=== PATIENT | male | born 1975 | race Caucasian/White ===

== ENCOUNTER 2017-10-04 13:55 | Emergency (ER) | payer OTHER ==
[2017-10-04] MEDS: LIDOCAINE WITH 8.4% SOD BICARB 3 ML DISP.SYRIN. IJ (14:52)
[2017-10-04] MEDS: DIPHTH,PERTUSS(ACELL),TET TOX 0.5 ML DISP.SYRIN. VAX IM (14:52)
== END 2017-10-04 14:57 | disposition home or self-care (01) ==
LOC: ER 13:55
DX: S61.211A Laceration without foreign body of left index finger without damage to nail, initial encounter (principal); E11.9 Type 2 diabetes mellitus without complications; W26.0XXA Contact with knife, initial encounter; Y93.89 Activity, other specified; Y99.8 Other external cause status; Y92.89 Other specified places as the place of occurrence of the external cause
CPT/HCPCS: 12002; 90471; 90715; 99283-25

== ENCOUNTER 2019-11-19 12:58 | Emergency (ER) | payer OTHER, MEDICAID ==
[~2019-11-19] VITALS: Ht 185.4 cm; Wt 116.8 kg
[2019-11-19 13:05] VITALS: BP 150/81
--- NOTE | 2019-11-19 13:55 | PHYS DOC ---
Past Medical History Past Medical History: Diabetes-Type II Past Surgical History: No Surgical History Smoking Status: Never Smoker Alcohol Use: None Drug Use: None Adult General Chief Complaint Chief Complaint: LACERATION/AVULSION [facility] Patient is a 44 year old male who presents with laceration to his right fifth digit. This occurred about 1 hour prior to arrival. The patient was working on his car and cut it on the exhaust pipe. He states his tetanus shot is up-to-date. Complete ROS were reviewed and found to be within normal limits, except as documented in the [facility] Allergies Allergies Allergies Coded Allergies Type Severity Reaction Last Updated Verified No Known Drug Allergies 10/04/17 No Physical Exam Physical Exam Constitutional: Well developed, well nourished, no acute distress, non-toxic appearance. [] Skin: Distal R 5th digit laceration 0.5 cm. Back: No tenderness, no CVA tenderness. [] Extremities: No tenderness, no cyanosis, no clubbing, ROM intact, no edema. [] Neurologic: Alert and oriented X 3, normal motor function, normal sensory function, no focal deficits noted. [] Psychologic: Affect normal, judgement normal, mood normal. [] Current Patient Data Vital Signs Vital Signs Date Time Temp Pulse Resp B/P (MAP) Pulse Ox O2 Delivery O2 Flow Rate FiO2 11/19/19 13:05 97.8 79 18 150/81 (104) 96 Room Air 97.8 EKG EKG [] Radiology/Procedures Radiology/Procedures [][facility] [address] [place] [address] IMAGING REPORT Signed PATIENT: SHRADDHA CAMACHO DACCOUNT: [id number] : 1975 LOCATION: ER AGE: 44 SEX: M EXAM STATUS: REG ER ORD. PHYSICIAN: CHUN ALONZO APRN REASON: laceration to 5th digit,pt states cut finger working on car. PROCEDURE: HAND RIGHT 3V HAND RIGHT 3V History: Fifth finger laceration. There is a soft tissue defect at the distal lateral fifth finger compatible with laceration. No evidence of acute fracture. Tiny density just lateral to the shaft of the distal fifth phalanx, may just represent some pre-existing calcification although a foreign body is possible. No evidence of dislocation. Question mild widening of the scapholunate distance and rotary subluxation of the scaphoid. IMPRESSION: 1. Soft tissue injury at the distal lateral fifth finger. 2. Tiny calcified density just lateral to the cortex of the distal fifth phalanx may just represent a pre-existing calcification, although a tiny foreign body is possible. 3. Question mild scapholunate dissociation. Electronically signed by: Chun Candelaria MD (11/19/2019 2:08 PM) [id number] at DICTATED and SIGNED BY: CHUN CANDELARIA MD DATE: 11/19/19 1408 Course & Med Decision Making Course & Med Decision Making Pertinent Labs and Imaging studies reviewed. (See chart for details) The patient has a laceration to R distal 5th digit. Will get x-ray, have nursing irrigated and then repair with dermabond. IMPRESSION: 1. Soft tissue injury at the distal lateral fifth finger. 2. Tiny calcified density just lateral to the cortex of the distal fifth phalanx may just represent a pre-existing calcification, although a tiny foreign body is possible. 3. Question mild scapholunate dissociation. Electronically signed by: Chun Candelaria MD (11/19/2019 2:08 PM) [id number] at [facility] likely a pre-existing calcification, no trauma other areas of hand. Wound was washed out with saline and then cleaned with chlorhexedine. Dermabond was placed over wound. Patient has hx of diabetes so will prophylactically put on Keflex. Dragon Disclaimer Dragon Disclaimer This electronic medical record was generated, in whole or in part, using a voice recognition dictation system. Departure Departure Impression: Primary Impression: Laceration of right hand Disposition: 01 HOME, SELF-CARE Condition: STABLE Referrals: MEME LEÓN MD (PCP) Patient Instructions: Laceration Care, Adult Additional Instructions: Thank you for visiting [facility]. We appreciate you trusting us with your care. If any additional problems come up don't hesitate to return to visit us. Please follow up with your primary care provider so they can plan additional care if needed and know about the problem that you had. If symptoms worsen come back to the Emergency Department. Any concerning symptoms that start such as chest pain, shortness of air, weakness or numbness on one side of the body, running high fevers or any other concerning symptoms return to the ER. Please return to the ER if he notices any signs or symptoms of infection on his finger. Take antibiotic as prescribed. Scripts Cephalexin (KEFLEX) 500 Mg Capsule 1 CAP PO QID for 5 Days, #20 CAP 0 Refills Prov: CHUN ALONZO APRN 11/19/19 Problem Qualifiers Primary Impression: Laceration of right hand Encounter type: initial encounter Foreign body presence: without foreign body Qualified Codes: S61.411A - Laceration without foreign body of right hand, initial encounter CHUN ALONZO APRN Nov 19, 2019 13:55
--- NOTE | 2019-11-19 14:12 | RAD ---
HAND RIGHT 3V History: Fifth finger laceration. There is a soft tissue defect at the distal lateral fifth finger compatible with laceration. No evidence of acute fracture. Tiny density just lateral to the shaft of the distal fifth phalanx, may just represent some pre-existing calcification although a foreign body is possible. No evidence of dislocation. Question mild widening of the scapholunate distance and rotary subluxation of the scaphoid. IMPRESSION: 1. Soft tissue injury at the distal lateral fifth finger. 2. Tiny calcified density just lateral to the cortex of the distal fifth phalanx may just represent a pre-existing calcification, although a tiny foreign body is possible. 3. Question mild scapholunate dissociation. Electronically signed by: Chun Candelaria MD (11/19/2019 2:08 PM) [id number] at 1
[2019-11-19] MEDS ORDERED: CEPH-264 PO (14:18)
== END 2019-11-19 14:20 | disposition home or self-care (01) ==
LOC: ER 12:58
DX: S61.216A Laceration without foreign body of right little finger without damage to nail, initial encounter (principal); E11.9 Type 2 diabetes mellitus without complications; Y28.8XXA Contact with other sharp object, undetermined intent, initial encounter; Y93.89 Activity, other specified; Y92.89 Other specified places as the place of occurrence of the external cause; Y99.8 Other external cause status
CPT/HCPCS: 12001; 73130; 99283